=== PATIENT | female | born 1960 ===

== ENCOUNTER 2019-11-05 07:15 | Inpatient (IN) | payer BC, MEDICAID ==
[2019-11-06] MEDS ORDERED: Ondansetron 4 MG/2 ML SDV ONE (07:01)
[2019-11-06] MEDS ORDERED: fentaNYL 250 MCG/5 ML SDV ONE ×3 (07:01→09:41)
[2019-11-06] MEDS ORDERED: Succinylcholine 200 MG/10 ML MDV ONE (07:01)
[2019-11-06] MEDS ORDERED: Dexamethasone 4 MG/ML SDV ONE (07:01)
[2019-11-06] MEDS ORDERED: Rocuronium 50 MG/5 ML Vial ONE ×2 (07:01→09:51)
[2019-11-06] MEDS ORDERED: Glycopyrrolate 0.2 MG/ML 5 ML MDV ONE (07:01)
[2019-11-06] MEDS ORDERED: Neostigmine Methylsulfate 1 MG/ML 5 ML Syringe ONE (07:01)
[2019-11-06] MEDS ORDERED: Propofol 200 MG/20 ML SDV ONE (07:01)
[2019-11-06] MEDS ORDERED: Celecoxib 200 MG Cap PO ONE (07:30)
[2019-11-06] MEDS ORDERED: Scopolamine 1.5 MG Transdermal Patch TRDERM SCH (07:30)
[2019-11-06] MEDS ORDERED: Acetaminophen 500 MG Tab PO ONE (07:30)
[2019-11-06] MEDS ORDERED: Dextrose 5%-Lactated Ringers 1,000 ML IV SCH ×2 (08:00→14:45)
[2019-11-06] MEDS ORDERED: Magnesium Sulfate 5.7 GM in Sodium Chloride 0.9% 250 ML IV ONE (08:30)
[2019-11-06] MEDS ORDERED: Ketamine 500 MG/5 ML MDV IV SCH (08:30)
[2019-11-06] MEDS ORDERED: Magnesium Sulfate 3.6 GM in Sodium Chloride 0.9% 100 ML IV SCH (08:30)
[2019-11-06] MEDS ORDERED: Ketamine 50 MG in Sodium Chloride 0.9% 49.5 ML IV SCH (08:30)
[2019-11-06] MEDS ORDERED: Diltiazem 180 MG Cap.CD PO ONE (08:37)
[2019-11-06] MEDS ORDERED: cefOXitin 2 GM in Sodium Chloride 0.9% 50 ML IV ONE (09:00)
[2019-11-06] MEDS: cefOXitin 2 GM Vial ONE ×2 (10:00→12:00)
[2019-11-06] MEDS ORDERED: Meropenem 500 MG SDV ONE (11:49)
[2019-11-06] MEDS ORDERED: Sodium Chloride 0.9% 10 ML ONE (11:50)
[2019-11-06] MEDS ORDERED: Naloxone 0.4 MG/ML SDV IVPUSH PRN (12:15)
[2019-11-06] MEDS: HYDROmorphone/Normal Saline 15 MG/30 ML PCA IV PRN (12:23)
[2019-11-06] MEDS ORDERED: Naloxone 0.4 MG/ML SDV IV PRN (13:00)
[2019-11-06] MEDS ORDERED: Insulin Lispro 100 Unit/ML 3 ML KwikPen SUBCUT ONE (13:30)
[2019-11-06] MEDS ORDERED: hydrOXYzine HCL 100 MG/2 ML SDV IM ONE (13:39)
[2019-11-06] MEDS ORDERED: Cyclobenzaprine 10 MG Tab PO PRN (14:38)
[2019-11-06] MEDS ORDERED: Glucagon,Human Recombinant 1 MG Vial IM PRN (15:00)
[2019-11-06] MEDS ORDERED: Labetalol 20 MG/4 ML Syringe IVPUSH PRN (15:00)
[2019-11-06] MEDS ORDERED: Acetaminophen 500 MG Tab PO PRN (15:00)
[2019-11-06] MEDS ORDERED: 50% Dextrose in Water 50 ML Syringe IVPUSH PRN (15:00)
[2019-11-06] MEDS ORDERED: Calcium Gluconate 10% 1 GM/10 ML SDV IVPUSH PRN (15:00)
[2019-11-06] MEDS ORDERED: Ondansetron 4 MG/2 ML SDV IVPUSH PRN (15:00)
[2019-11-06] MEDS ORDERED: Metoclopramide 10 MG/2 ML SDV IVPUSH PRN (15:00)
[2019-11-06] MEDS ORDERED: hydrOXYzine HCL 100 MG/2 ML SDV IM PRN (15:00)
[2019-11-06] MEDS ORDERED: Albuterol/Ipratropium 3.0-0.5 MG/3 ML Neb Soln INH PRN (15:00)
[2019-11-06] MEDS ORDERED: diphenhydrAMINE 50 MG/ML SDV IVPUSH PRN (15:00)
[2019-11-06] MEDS: Lactated Ringers 1,000 ML IV SCH (15:07)
[2019-11-06] MEDS: cefOXitin 2 GM in Sodium Chloride 0.9% 50 ML IV SCH ×2 (15:56→21:54)
[2019-11-06] MEDS: Insulin Lispro 100 Unit/ML 3 ML KwikPen SUBCUT PRN ×2 (16:40→22:38)
[2019-11-06] MEDS: metFORMIN 500 MG Tab PO SCH (17:12)
[2019-11-06] MEDS: Acetaminophen 500 MG Tab PO SCH (17:12)
[2019-11-06] MEDS: Pantoprazole 40 MG Vial IVPUSH SCH (17:12)
[2019-11-06] MEDS: MVI, Adult with Vitamin K 10 ML, Thiamine 200 MG, Chromium/Copper/Mang/Selen/Zn 1 ML in... IV SCH ×4 (18:39)
[2019-11-06] MEDS ORDERED: Insulin Glargine,Human Rec. Analog 100 Units/ML 3 ML Pen SUBCUT ONE (21:00)
[2019-11-06] MEDS: Heparin Sodium 5,000 Units/ML Vial SUBCUT SCH (21:54)
[2019-11-06] MEDS ORDERED: Furosemide 20 MG/2 ML VIAL IVPUSH ONE (22:08)
[2019-11-07] MEDS: Acetaminophen 500 MG Tab PO SCH ×3 (00:38→16:32)
[2019-11-07] MEDS: Lactated Ringers 1,000 ML IV SCH ×3 (01:38→10:17)
[2019-11-07] MEDS ORDERED: Iopamidol 612 MG/ML 50 ML SDV PO STA (02:26)
[2019-11-07] MEDS: cefOXitin 2 GM in Sodium Chloride 0.9% 50 ML IV SCH ×4 (03:46→21:20)
[2019-11-07] MEDS: Insulin Lispro 100 Unit/ML 3 ML KwikPen SUBCUT PRN ×4 (03:57→21:21)
[2019-11-07] MEDS ORDERED: Ondansetron 4 MG Tab.DIS PO PRN (06:42)
--- NOTE | 2019-11-07 08:09 | PN ---
DATE OF SERVICE: 11/07/2019 SUBJECTIVE: Sahra is postop day#1. Vital signs have been stable. She has been up ambulating, sitting in a chair since about 2:30. Pain has been controlled. Upper GI this morning was normal. Oral intake 340. Urine output via Sahu catheter is 2645. SUDHA drains 1 and 2 have put out 38 and 35 mL respectively. REVIEW OF SYSTEMS: Remainder of review of systems negative for any pertinent positives and negatives. OBJECTIVE: GENERAL: Sahra Oquendo is a pleasant 59-year-old female. VITAL SIGNS: TPR at 0414; 96.7, 106, 16. Blood pressure 125/69. HEENT: Negative. NECK: Supple. HEART: Regular rate and rhythm. LUNGS: Reveal decreased breath sounds. Pulse oximetry is 84% without O2 and 90% with 4 L of O2 per nasal cannula. ABDOMEN: Dressings dry and intact. SUDHA drains x2 intact. Abdominal binder is on. EXTREMITIES: Without peripheral edema. ASSESSMENT: 1. Diagnostic laparoscopy turned to laparotomy with: a. Duodenal switch. b. Repair of paraesophageal hernia with mesh. c. Liver biopsy. d. Repair of area of deserosalization of small bowel. Postoperative diagnoses: 1. a. Morbid obesity. b. Hepatomegaly. c. Paraesophageal diaphragmatic hernia. d. Extensive abdominal adhesions to area overlying small bowel and small bowel into pelvis with partial small bowel obstruction. 2. Area of deserosalization of small bowel. Date of surgery: 11/06/2019. Surgeon: Marcelino Nathan MD. PLAN: 1. Change IV to lactated Ringer's at 125 mL per hour. 2. Discontinue D5 LR. 3. Restart metformin 500 mg daily. 4. Step 2 gastric bypass diet with no cereal. 5. Discontinue Sahu catheter. 6. May shower. 7. Zofran ODT 4 mg p.o. q.4 hours p.r.n. nausea. 8. Continue to use incentive spirometer. 9. We will evaluate p.r.n. or in a.m. Aiyana Canchola PA-C /[id number]
[2019-11-07] MEDS: Heparin Sodium 5,000 Units/ML Vial SUBCUT SCH ×2 (08:43→21:13)
[2019-11-07] MEDS: metFORMIN 500 MG Tab PO SCH (08:43)
[2019-11-07] MEDS: Celecoxib 200 MG Cap PO SCH ×2 (08:44→21:16)
[2019-11-07] MEDS: Venlafaxine 75 MG Cap.ER PO SCH (08:45)
[2019-11-07] MEDS: Diltiazem 180 MG Cap.CD PO SCH (08:45)
[2019-11-07] MEDS: Losartan 25 MG Tab PO SCH (08:45)
[2019-11-07] MEDS: SCOPOLAMINE PATCH CHECK TOP SCH (09:31)
--- NOTE | 2019-11-07 11:09 | CR ---
[facility] [employer] HISTORY: Postbariatric surgery FINDINGS: Patient swallowed water-soluble contrast. Upright views of the abdomen show no evidence of extravasation or obstruction. IMPRESSION: Status post bariatric surgery No extravasation or obstruction seen
[2019-11-07] MEDS: MVI, Adult with Vitamin K 10 ML, Thiamine 200 MG, Chromium/Copper/Mang/Selen/Zn 1 ML in... IV SCH ×4 (16:04)
[2019-11-07] MEDS: Pantoprazole 40 MG Vial IVPUSH SCH (16:32)
[2019-11-08] MEDS: Acetaminophen 500 MG Tab PO SCH ×4 (00:03→23:48)
[2019-11-08] MEDS: HYDROmorphone/Normal Saline 15 MG/30 ML PCA IV PRN (01:46)
[2019-11-08] MEDS: Lactated Ringers 1,000 ML IV SCH (02:25)
[2019-11-08] MEDS: cefOXitin 2 GM in Sodium Chloride 0.9% 50 ML IV SCH (04:40)
[2019-11-08] MEDS: Insulin Lispro 100 Unit/ML 3 ML KwikPen SUBCUT PRN ×3 (05:36→16:53)
[2019-11-08] MEDS: HYDROmorphone 2 MG Tab PO PRN ×3 (08:51→21:36)
[2019-11-08] MEDS: Losartan 25 MG Tab PO SCH (08:52)
[2019-11-08] MEDS: Docusate Sodium 100 MG Cap PO SCH ×3 (08:52→20:55)
[2019-11-08] MEDS: Heparin Sodium 5,000 Units/ML Vial SUBCUT SCH ×2 (08:52→19:33)
[2019-11-08] MEDS: Venlafaxine 75 MG Cap.ER PO SCH (08:52)
[2019-11-08] MEDS: Celecoxib 200 MG Cap PO SCH ×3 (08:53→20:55)
[2019-11-08] MEDS: Bisacodyl 5 MG Tab PO SCH ×3 (08:53→20:55)
[2019-11-08] MEDS: metFORMIN 500 MG Tab PO SCH ×2 (08:53→16:52)
[2019-11-08] MEDS: Diltiazem 180 MG Cap.CD PO SCH (08:54)
[2019-11-08] MEDS ORDERED: Cyanocobalamin (Vitamin B12) 1,000 MCG/ML SDV IM ONE (09:00)
[2019-11-08] MEDS: SCOPOLAMINE PATCH CHECK TOP SCH (09:08)
[2019-11-08] MEDS: Pantoprazole 40 MG Tab.CR PO SCH (10:55)
--- NOTE | 2019-11-08 14:32 | PN ---
DATE OF SERVICE: 11/08/2019 SUBJECTIVE: Sahra has been using her PROJECT MANAGER PROCESS DEVELOPMENT for pain and it has been controlled. She remains to be on 4 L of oxygen to maintain her pulse oximetry in the 90s. Oral intake was 1430. Urine output 1100. SUDHA drain 1 and 2 have put out 15 mL each of a light pink drainage. Blood sugar last checked was 292, and during the day, they were 295, 284, and 241. REVIEW OF SYSTEMS: Remainder of review of systems negative for any pertinent positives and negatives. OBJECTIVE: GENERAL: Sahra Oquendo is a pleasant 59-year-old female. She is alert and orientated, sitting up in the chair. VITAL SIGNS: TPR at 0751 is 96.3; 72; 12; blood pressure 127/78. HEENT: Negative. NECK: Supple. HEART: Regular rate and rhythm. LUNGS: Reveal some rhonchi that does clear after she coughs. She has a loose sounding cough. ABDOMEN: Dressings dry and intact. Abdominal binder is on. SUDHA drains as stated. EXTREMITIES: With trace peripheral edema. ASSESSMENT: 1. Diagnostic laparoscopy turned to laparotomy with: a. Duodenal switch. b. Repair of paraesophageal hernia with mesh. c. Liver biopsy. d. Repair of area of deserosalization of small bowel. POSTOPERATIVE DIAGNOSES: 1. Morbid obesity. 2. Hepatomegaly. 3. Paraesophageal diaphragmatic hernia. 4. Extensive abdominal adhesions to area overlying small bowel and small bowel into pelvis. 5. Partial small bowel obstruction. 6. Date of surgery: 11/06/2019. Surgeon: Marcelino Nathan MD. PLAN: 1. Metformin 500 mg p.o. b.i.d. 2. Discontinue PROJECT MANAGER PROCESS DEVELOPMENT. 3. Dilaudid 2 to 4 mg every 6 hours p.r.n. pain. 4. May shower. 5. We will evaluate p.r.n. or in a.m. Aiyana Canchola PA-C /[id number]
[2019-11-09] MEDS: Insulin Lispro 100 Unit/ML 3 ML KwikPen SUBCUT PRN (05:41)
[2019-11-09] MEDS: HYDROmorphone 2 MG Tab PO PRN ×2 (05:42→12:00)
[2019-11-09] MEDS: Venlafaxine 75 MG Cap.ER PO SCH (08:28)
[2019-11-09] MEDS: Losartan 25 MG Tab PO SCH (08:28)
[2019-11-09] MEDS: Bisacodyl 5 MG Tab PO SCH (08:28)
[2019-11-09] MEDS: Celecoxib 200 MG Cap PO SCH (08:28)
[2019-11-09] MEDS: Acetaminophen 500 MG Tab PO SCH (08:28)
[2019-11-09] MEDS: Pantoprazole 40 MG Tab.CR PO SCH (08:28)
[2019-11-09] MEDS: Docusate Sodium 100 MG Cap PO SCH (08:28)
[2019-11-09] MEDS: Diltiazem 180 MG Cap.CD PO SCH (08:28)
[2019-11-09] MEDS: metFORMIN 500 MG Tab PO SCH (08:29)
[2019-11-09] MEDS: Heparin Sodium 5,000 Units/ML Vial SUBCUT SCH (08:31)
--- NOTE | 2019-11-09 11:05 | DISCH ---
ADMISSION DIAGNOSES: Morbid obesity, BMI is 37, depression, diabetes type 2, history of myocardial infarction. DISCHARGE DIAGNOSES: 1. Diagnostic laparoscopy turned to laparotomy with: a. Duodenal switch. b. Repair of paraesophageal hernia with mesh. c. Liver biopsy. d. Repair of area of deserosalization of small bowel. POSTOPERATIVE DIAGNOSES: 1. Morbid obesity. 2. Hepatomegaly. 3. Paraesophageal diaphragmatic hernia. 4. Extensive abdominal adhesions to area overlying small bowel and small bowel to pelvis. 5. Partial small bowel obstruction. Date of surgery: 11/06/2019. Surgeon: Marcelino Nathan MD. HISTORY: Sahra Oquendo is a pleasant 59-year-old female with longstanding history of morbid obesity and increasing comorbidities. After preoperative evaluation and discussion of possible risks and possible complications, she wished to proceed with surgical procedure. HOSPITAL COURSE: Sahra had her surgery on 11/06/2019. She had no operative complications. On postoperative day #1, her upper GI was normal. She was started on step 2 gastric bypass diet. On postoperative day #2, vital signs remained stable. Blood sugars were monitored. She was started on metformin 500 twice daily. LEARNING AND DEVELOPMENT ASSOCIATE was discontinued, started on oral pain medication. Activity was good. She ambulated, remained afebrile. Oral intake adequate, and she was passing flatus. Her last blood sugar at time of discharge was 209 and prior to that it was 214. Sahra received adequate bariatric diet instructions, and she was able to be discharged to home on 11/09/2019 without any complications. PHYSICAL EXAMINATION: GENERAL: Sahra Oquendo is a pleasant 59-year-old female. VITAL SIGNS: Height is 5 feet 10 inches, weight is 260 pounds, BMI is 37. TPR is 96.7; 75; 16; blood pressure 154/76. HEENT: Negative. NECK: Supple. HEART: Regular rate and rhythm. LUNGS: Clear. ABDOMEN: SUDHA drains will be discontinued prior to discharge. She has Aquacel dressing on her incision. This will be replaced. Abdominal binder has been on. EXTREMITIES: Without peripheral edema. DISPOSITION: Discharged to home. CONDITION: Stable and improving. FOLLOWUP: Appointment with Aiyana Canchola PA-C, on 11/20/2019 at 10 a.m. HOME MEDICATIONS: 1. Celebrex 200 mg b.i.d. 14 days. 2. Colace 100 mg oral b.i.d. #60. 3. Dilaudid 2 mg every 6 hours p.r.n. pain #42. 4. Metformin 500 mg b.i.d. with meals, #60. 5. Tylenol 1000 mg every 6 hours. 6. Zofran 4 mg every 4 hours p.r.n. nausea, #30. 7. She is to resume her home medication of: a. Aspirin 81 mg daily. b. Diltiazem 180 mg oral daily. c. Omeprazole 40 mg oral daily. d. Venlafaxine 150 mg oral daily. e. Lipitor 20 mg oral daily. 8. To discontinue vitamins and supplements and Levemir. DIET AFTER DISCHARGE: 1. Drink 8 to 10 glasses of water a day. 2. Step 2 gastric bypass diet with no cereal until 12/05/2019. ACTIVITY: As tolerated. No lifting greater than 10 pounds for 6 weeks. Other activity: Walk at least 6 times daily inside your home. Driving: Do not drive for 1 week and while on narcotic pain medication. Shower/bathing: May shower. DISCHARGE INSTRUCTIONS: Notify provider if any fever, increased pain, swelling, redness, drainage, nausea, or vomiting. Wound incision: Keep site clean and dry. Wear abdominal binder for 6 weeks and then as tolerated. Take off Aquacel dressing on 11/12/2019. SPECIAL INSTRUCTION: Use incentive spirometer 10 times every hour while awake for 1 week. Check blood sugars 4 times a day and bring results of blood sugars to clinic appointment.
--- NOTE | 2019-11-11 11:28 | OR ---
DATE OF PROCEDURE: 11/06/2019 SURGEON: Marcelino Nathan MD PREOPERATIVE DIAGNOSIS: Morbid obesity. POSTOPERATIVE DIAGNOSES: 1. Morbid obesity. 2. Marked hepatomegaly. 3. Paraesophageal diaphragmatic hernia. 4. Extensive adhesions to duodenum and overlying common bile duct. 5. Adhesions between small bowel and pelvis resulting in partial small-bowel obstruction. OPERATIVE PROCEDURE: Diagnostic laparoscopy converted to laparotomy with: 1. Duodenal switch (33846). 2. Repair of paraesophageal diaphragmatic hernia with mesh (70435). 3. Tyler-Cut needle liver biopsy (96487). 4. Repair of deserosalization of small bowel. ANESTHESIA: General. STATEMENT REQUEST CLERK: Aiyana Canchola PA-C INDICATIONS FOR PROCEDURE: This is a 59-year-old presenting with a long history of morbid obesity, increasingly significant comorbidities including difficult to control type 2 diabetes mellitus. After preoperative evaluation and discussion, she wished to proceed with a duodenal switch. The patient had a previous cholecystectomy as well as section, so she was aware of the possible need to convert to an open procedure if adhesions involving those areas are significant. Otherwise, potential risks including bleeding, infection, leaks from various GI tract closures as well as bowel obstruction over time were all reviewed, and the patient wishes to proceed. DETAILS OF PROCEDURE: The patient was taken to the operating room and placed in a supine position. After general endotracheal anesthesia was induced, she was converted to a lithotomy position and a Sahu catheter inserted. The abdomen was then prepped and draped. A 20 cm inferior and 5 cm left of the xiphoid process, a transverse incision was made and peritoneal cavity entered under direct vision with an Optiview trocar, inflated to 15 mmHg pressure with CO2. The laparoscope was reinserted. No underlying trocar insertion site injuries were seen. Following this, 5 additional trocars were placed across the upper and mid abdomen. Initial exploration revealed marked hepatomegaly and Tyler-Cut needle biopsy was obtained from left lobe of the liver. Minimal bleeding from the biopsy site was controlled with electrocautery. At this point, 2 problematic findings with regard to the laparoscopic approach were encountered. One was very dense adhesions between the duodenum and the course over the common bile duct in the area of previous cholecystectomy. Additionally upon inspecting the small bowel, it was noted that the distal small bowel was quite matted into the pelvis and appeared to have an area of partial obstruction with the bowel containing to be colitis-type material within it. Given this, the decision at this point was made to proceed with an open approach. The trocars were then removed. An upper midline incision from the xiphoid to just below the umbilicus was made and carried down through the full thickness of abdominal wall in the peritoneal cavity and the above findings were reconfirmed. The liver was then retracted anteriorly and the area around the esophagogastric junction was initially noted to have a significant paraesophageal diaphragmatic hernia containing some perigastric fat and gastric fundus. Subsequently, it has been noted some posterior aspect of the gastric cardia was prolapsing behind the course of the esophagus as well. The peritoneum overlying this area was then dissected free and the hernia reduced. A crural repair using 0 Ethibond sutures reinforced with PTFE pledgets was then accomplished posteriorly and that crural repair was then reinforced with an area of Phasix ST mesh, then cut in a horseshoe-type configuration laying this over the crural repair and then along the sides of the crura on each side and was tacked in place with titanium tacking screws. Beginning 6 cm proximal to the pylorus, the omentum was divided away using the Harmonic scalpel. greater curvature of the stomach was initiated at that level, then continued upward to include the highest and posterior short gastric vessels. Once this was completed, the systems mechanic placed a 40-Zambian chest tube orally down through the mouth and through the esophagus and into the lesser curvature of the stomach. The initial firings of the VICKY stapler in the antrum and the area below the incisura angularis were accomplished with unreinforced VICKY black loads. The remainder of the sleeve gastrectomy was accomplished with the 40-Zambian tube pulled slightly up against the lesser curvature of the stomach with combination of reinforced black and reinforced purple loads. The gastrectomy specimen was then delivered from the field. The attention was now taken to cleaning up the small bowel. There were quite extensive adhesions between the distalmost small bowel and the pelvis. These were taken down and an area of significant deserosalization was then encountered. After completion of the lysis of adhesions, this area was repaired with some 3-0 Vicryl seromuscular stitch, fibrin sealant, and an omental patch placed over that area. With the small bowel now being freed up, it was traced back 300 cm proximal to the ileocecal valve and that area of small bowel was then marked with a temporary stitch to maintain its location. The peritoneum inferior to the duodenum was then incised. The duodenum was then gradually dissected away from what would otherwise be the course over the lateral aspect of the common bile duct. Once the duodenum was freed up circumferentially, it was then divided with a VICKY reinforced purple load roughly 4 cm distal to the pylorus. The small bowel then 300 cm proximal to the ileocecal valve was then brought up to the divided duodenum. Stay sutures were then placed proximally and distally and enterotomy was made in the duodenum and adjacent ileum. The initial posterior layer of 3-0 Vicryl stitches in the seromuscular plane were then placed and then the inner layer of 3-0 Vicryl which was placed through full-thickness technique was initiated posteriorly, then in each direction continued around the back wall and around the upper and lower quadrants and then continued anteriorly where they united with each other and tied. The outer layer was then continued from the inferior and superior aspects of the anastomosis as well and finished with the other seromuscular layer being tied anteriorly as well. There was a palpable nice opening within that anastomosis. At this point, the small bowel was inspected. The mesentery to the distal ileum was very thickened and not mobile and it was felt that this secondary anastomosis would be contraindicated at this point, but could be accomplished later if necessary. With no further problems noted, the duodenal ileostomy and sleeve gastrectomy staple line were reinforced with fibrin sealant. The abdomen was irrigated with antibiotic-containing saline solution. Two Ac-Do drains were placed, one across the area of the duodenal ileostomy and the other in the area of the esophagogastric junction, from there up into the splenic fossa. The midline fascia was then approximated with #2 Vicryl stitch, the subcutaneous tissue with 2 layers of 3-0 and 4-0 Vicryl stitch, and the skin with alo. Prior to closure, bilateral transversus abdominis plane blocks were placed and the patient taken to the recovery room in satisfactory condition. Physician assistant softball coach, Aiyana Canchola, played an essential role in assisting in this case, helping to position the patient, retract structures as needed, as well as suturing and cutting sutures when indicated. Her presence improved patient safety and decreased the operative time. Marcelino Nathan MD /[id number]
== END 2019-11-09 12:00 | disposition home or self-care (01) | DRG 403 ==
LOC: JP.SDSSCHI 11-06 07:45 → JP.SDS 11-06 07:45 → EDSTATUS 11-06 11:00 → JP.MS 11-06 12:45
PROVIDERS: ADMIT Surgery; ATTEND Surgery
PROC: 0D190ZB Bypass Duodenum to Ileum, Open Approach (ICD-10-PCS; principal; 2019-11-06)
PROC: 0DB60Z3 Excision of Stomach, Open Approach, Vertical (ICD-10-PCS; 2019-11-06)
PROC: 0BUT0JZ Supplement Diaphragm with Synthetic Substitute, Open Approach (ICD-10-PCS; 2019-11-06)
PROC: 0FB20ZX Excision of Left Lobe Liver, Open Approach, Diagnostic (ICD-10-PCS; 2019-11-06)
PROC: 0DJ04ZZ Inspection of Upper Intestinal Tract, Percutaneous Endoscopic Approach (ICD-10-PCS; 2019-11-06)
DX: E66.01 Morbid (severe) obesity due to excess calories (principal); Z68.37 Body mass index [BMI] 37.0-37.9, adult; F32.9 Major depressive disorder, single episode, unspecified; E11.9 Type 2 diabetes mellitus without complications; R16.0 Hepatomegaly, not elsewhere classified; K44.9 Diaphragmatic hernia without obstruction or gangrene; K56.51 Intestinal adhesions [bands], with partial obstruction; Z79.82 Long term (current) use of aspirin; I25.2 Old myocardial infarction; Z79.4 Long term (current) use of insulin; Z79.899 Other long term (current) drug therapy; Z87.891 Personal history of nicotine dependence
CPT/HCPCS: 36415; 74240; 74240-26; 82962; 86850; 86900; 86901; 88304; 88307; 88313; 94762; A9270-GY; C1713; C1781; C9113; J0171; J0330; J0694; J1100; J1170; J1644; J1815; J1815-GY; J1940; J2185; J2405; J2704; J2710; J2795; J3010; J3410; J3411; J3420; J3475; J3490; J7030; J7050; J7120; J7121; Q9967